=== PATIENT | female | born 1995 | race Caucasian/White ===

== ENCOUNTER 2024-04-20 06:53 | Day surgery (SDC) | payer OTHER ==
[2024-04-20] MEDS ORDERED: LACTATED RINGERS 1,000 ML IV SCH (07:07)
[2024-04-20] MEDS ORDERED: LIDOCAINE 1% (10MG/ML) FOR IV START INTRADERMA PRN (07:07)
[2024-04-20 07:19] VITALS: TEMP 97.6
[2024-04-20] MEDS: LACTATED RINGERS 1,000 ML IV ONE (07:30)
[2024-04-20] MEDS ORDERED: PROPOFOL 10 MG/ML 20 ML VIAL IV ONE (07:33)
--- NOTE | 2024-04-20 07:48 | P.GSHP ---
History of Present Illness H&P Date: 04/20/24 CHIEF COMPLAINT: GERD HISTORY OF PRESENT ILLNESS: The patient is a 28-year-old female who presents reports gastroesophageal reflux disease. Upper endoscopy was offered for further evaluation and management. PAST MEDICAL HISTORY: Please see list. PAST SURGICAL HISTORY: Please see list. MEDICATIONS: Please see list. ALLERGIES: Please see list. SOCIAL HISTORY: No illicit drug use FAMILY HISTORY: No reports of Crohn disease or ulcerative colitis. REVIEW OF ORGAN SYSTEMS: CONSTITUTIONAL: No reports of fevers or chills. GI: Denies any blood in stools or constipation. PHYSICAL EXAM: VITAL SIGNS: Stable GENERAL: Well-developed and pleasant in no acute distress. HEENT: No scleral icterus. Extraocular movements grossly intact. Moist buccal mucosa. NECK: Supple without lymphadenopathy. CHEST: Unlabored respirations. Equal bilateral excursions. CARDIOVASCULAR: Regular rate and rhythm. Distal 2+ pulses. ABDOMEN: Soft, nondistended. MUSCULOSKELETAL: No clubbing, cyanosis, or edema. ASSESSMENT: 1. Gastroesophageal reflux disease PLAN: 1. Recommend proceeding with an upper endoscopy Past Medical History Past Medical History: Hyperlipidemia Additional Past Medical History / Comment(s): pt states that sometimes her cholesterol level is elevated, low vit d level, staph infection rt breast-not mrsa History of Any Multi-Drug Resistant Organisms: None Reported Past Surgical History: Tubal Ligation Additional Past Surgical History / Comment(s): rt hand sx Past Anesthesia/Blood Transfusion Reactions: No Reported Reaction Smoking Status: Former smoker - Past Family History Father Family Medical History: Hyperlipidemia, Hypertension Additional Family Medical History / Comment(s): cardiac issue Medications and Allergies Home Medications Medication Instructions Recorded Confirmed Type OXcarbazepine [Oxtellar Xr] 900 mg PO DAILY 03/18/24 04/14/24 History Ergocalciferol [Vitamin D2 (1250 50,000 unit PO WEEKLY 03/23/24 04/14/24 History Mcg = 70517 Iu)] ISOtretinoin [Accutane] 40 mg PO DAILY 04/14/24 04/14/24 History buPROPion XL [Wellbutrin XL] 150 mg PO DAILY 04/14/24 04/14/24 History Allergies Allergy/AdvReac Type Severity Reaction Status Date / Time adhesive tape Allergy Rash/Hives Verified 04/20/24 07:07 Surgical - Exam Vital Signs Temp Pulse Resp BP Pulse Ox 97.6 F 77 16 115/64 95 04/20/24 07:19 04/20/24 07:19 04/20/24 07:19 04/20/24 07:19 04/20/24 07:19
--- NOTE | 2024-04-20 07:54 | P.PCN ---
Date of Procedure: 04/20/24 Description of Procedure: PREOPERATIVE DIAGNOSIS: Gastroesophageal reflux disease. Morbid obesity. POSTOPERATIVE DIAGNOSIS: Gastroesophageal reflux disease. Morbid obesity. Esophageal ulcer Gastritis. Diaphragmatic hiatal hernia OPERATION: Esophagogastroduodenoscopy with biopsies along esophagus, antrum and duodenum SURGEON: Arminda Singleton MD ANESTHESIA: MAC. INDICATIONS: The patient is a 28-year-old female who presents with reflux disease. Benefits and risks of the procedure were described. Informed consent was obtained. DESCRIPTION: The patient was brought into the endoscopy suite and laid in the left lateral decubitus position. An Olympus gastroscope was passed along the posterior orop harynx down to the distal esophagus where the squamocolumnar junction was encountered at 35 cm from the incisors. The stomach was entered and no bile reflux was found. Additional findings are listed below. Biopsies with cold forceps were obtained of the antrum. The first through third portion of the duodenum was examined. Retroflexion of the scope confirmed Hill grade 3 lower esophageal valve. The squamocolumnar junction demonstrated LA grade B erosive esophagitis. The stomach was desufflated. The patient tolerated the procedure well. FINDINGS: Squamocolumnar junction 35 cm from the incisors. Diaphragmatic hiatus at 36 cm. Hiatal hernia, 1 cm Hill grade 3 lower esophageal valve. LA grade B erosive esophagitis. Biopsies obtained of the duodenum. Chronic gastritis with biopsies obtained. RECOMMENDATIONS: Upper endoscopy as needed. Plan - Discharge Summary Discharge Rx Participant: No New Discharge Prescriptions: Continue OXcarbazepine [Oxtellar Xr] 900 mg PO DAILY buPROPion XL [Wellbutrin XL] 150 mg PO DAILY Ergocalciferol [Vitamin D2 (1250 Mcg = 80741 Iu)] 50,000 unit PO WEEKLY ISOtretinoin [Accutane] 40 mg PO DAILY Discharge Medication List OXcarbazepine [Oxtellar Xr] 900 mg PO DAILY 03/18/24 [History] Ergocalciferol [Vitamin D2 (1250 Mcg = 28375 Iu)] 50,000 unit PO WEEKLY 03/23/24 [History] ISOtretinoin [Accutane] 40 mg PO DAILY 04/14/24 [History] buPROPion XL [Wellbutrin XL] 150 mg PO DAILY 04/14/24 [History] [facility]Ref[place] [facility] [place] [place] [place] [facility] Patient Instructions/Handouts: Peptic Ulcer (DC) Discharge Disposition: HOME SELF-CARE
[2024-04-20 08:23] VITALS: BP 122/80; PULSE 81; RESP 16
== END 2024-04-20 08:41 | disposition home or self-care (01) ==
LOC: ORWHC2ENDO 06:53
PROVIDERS: ATTEND Surgery Plastic and Reconstructive Surgery
DX: K21.00 Gastro-esophageal reflux disease with esophagitis, without bleeding (principal); K22.10 Ulcer of esophagus without bleeding; K44.9 Diaphragmatic hernia without obstruction or gangrene; E78.5 Hyperlipidemia, unspecified; K29.50 Unspecified chronic gastritis without bleeding; E66.01 Morbid (severe) obesity due to excess calories; F31.9 Bipolar disorder, unspecified; Z79.899 Other long term (current) drug therapy; Z87.891 Personal history of nicotine dependence; Z98.51 Tubal ligation status; Z88.8 Allergy status to other drugs, medicaments and biological substances; Z68.41 Body mass index [BMI] 40.0-44.9, adult
CPT/HCPCS: 81025; 43239; J2704; 88305

== ENCOUNTER → 2024-07-22 | Outpatient (CLI) | payer OTHER ==
[2024-07-22 16:24] VITALS: BP 113/76; PULSE 77; RESP 16; TEMP 98.1; BMI 39.9
--- NOTE | 2024-07-22 16:32 | P.BASOAP ---
Subjective Progress Note Date: 07/22/24 She reports constipation. She is seeking the gastric bypass. 5% weigth loss of 228 from 240 or 12 pounds. Risks of bypass reviewed. Risk of not achieving weight reviewed. Objective - Vital Signs Vital signs: Vital Signs Temp 98.1 F 07/22/24 16:15 Pulse 77 07/22/24 16:15 Resp 16 07/22/24 16:15 BP 113/76 07/22/24 16:15 Pulse Ox FiO2 Intake & Output 07/21/24 07/22/24 07/22/24 18:59 06:59 18:59 Weight 108.862 kg Assessment/Plan Plan: Date: 07/22/24 Initial Weight: 108.409 kg Initial BMI: 39.7 Current Weight: 108.862 kg Current BMI: 39.9 Type of Surgery: Total Volume in Band: Previous Volume: Volume Removed: Volume Added: Band Size:
== END ==
LOC: BARWHC3 15:08
PROVIDERS: ATTEND Surgery Plastic and Reconstructive Surgery
DX: E66.01 Morbid (severe) obesity due to excess calories (principal); Z91.048 Other nonmedicinal substance allergy status; Z68.39 Body mass index [BMI] 39.0-39.9, adult
CPT/HCPCS: 99211

== ENCOUNTER 2024-08-10 07:24 | Inpatient (IN) | payer OTHER ==
[~2024-08-10 07:24] MED LIST: HYDROmorphone 0.5 MG/0.5 ML SYRINGE IVP PRN
--- NOTE | 2024-08-10 08:01 | P.GSHP ---
History of Present Illness H&P Date: 08/10/24 CHIEF COMPLAINT: Morbid obesity HISTORY OF PRESENT ILLNESS: Britney Ace is a 29-year-old female who comes with lifelong morbid obesity. As result of morbid obesity, she has hyperlipidemia, osteoarthritis of the hips and knees. She has completed medical supervised weight loss. She has completed psychological risk assessment. All surgical options were reviewed. She elected for gastric bypass. At height of 5 feet 6 inches, her ideal body weight is 154 pounds. She comes in 230 pounds. Her body mass index is 37.0. She is 75 pounds overweight. PAST MEDICAL HISTORY: 1. Morbid obesity due to excess calories 2. Body mass index of 37.0 3. Osteoarthritis of the knees. 4. Osteoarthritis of the lower back. 5. Bipolar disorder 6. Gastroesophageal reflux disease 7. Hyperlipidemia PAST SURGICAL HISTORY: 1. Upper endoscopy HOME MEDICATIONS: Reviewed ALLERGIES: Reviewed SOCIAL HISTORY: Past tobacco use. FAMILY HISTORY: No family history of ulcerative colitis disease or Crohn's disease. Family history of morbid obesity. No lupus in the family. No reports of stomach or esophageal cancer. REVIEW OF ORGAN SYSTEMS: CONSTITUTIONAL: At height of 5 feet 4 inches, her ideal body weight is 144 pounds. She comes in 220 pounds. Her body mass index is 37.8 She is 76 pounds overweight. HEENT: Denies any active troubles with vision or hearing. ENDOCRINE: Has diabetes. Has hypothyroidism. CARDIOVASCULAR: Past reports of palpitations or heart attacks or chest pain. RESPIRATORY: Has daytime somnolence. GASTROINTESTINAL: Denies any bright red blood per rectum. Has gastroesophageal reflux disease. MUSCULOSKELETAL: Has lower back pain and joint pain. Has osteoarthritis of the knees. NEURO: No headaches. No seizure disorders. PSYCH: Has depression. No suicidal ideation. RHEUMATOLOGIC: No lupus. No rheumatoid arthritis. HEMATOLOGIC: Denies any abnormal bleeding or bruising. No personal history of DVTs. SKIN: Has rash. No skin cancer. PHYSICAL EXAM: VITAL SIGNS: Height 5 foot 6 inches, weight 230 pounds. BMI 37.0 GENERAL: Well-developed in no acute distress. HEENT: No scleral icterus. Extraocular movements grossly intact. Hears conversational speech. No nasal drainage. NECK: Supple without lymphadenopathy. CHEST: Nonlabored respirations with equal bilateral excursions. CARDIOVASCULAR: Regular rate and regular rhythm. Distal 2+ pulses. ABDOMEN: Obese, soft, nontender, nondistended. MUSCULOSKELETAL: No clubbing, cyanosis. NEURO: No focal or lateralizing signs. Cranial nerves 2 through 12 grossly within normal limits. PSYCH: Appropriate affect. Alert and oriented to person, place and time. SKIN: Good skin turgor. Well perfused. ASSESSMENT: 1. Morbid obesity due to excess calories 2. Body mass index of 37.0 3. Osteoarthritis of the knees. 4. Osteoarthritis of the lower back. 5. Bipolar disorder 6. Gastroesophageal reflux disease 7. Hyperlipidemia PLAN: 1. Bariatric options between a sleeve, band and a Carlitos-en-Y gastric bypass were reviewed in detail. The patient elected for a gastric bypass. Robotic assisted approach described. 2. The [place] [facility] Data was also reviewed with benefits and risks as described. 3. An 8 page second-generation bariatric consent form was reviewed in detail including potential of bleeding, infection, leaks, adequate weight loss, nutritional deficiencies which the patient demonstrated understanding of the risks. 4. A 2 week high-protein low caloric 800 kcal diet described to address hepatomegaly. 5. Preoperative labs including complete metabolic panel and CBC with type and screen recommended. 6. DVT prophylaxis per [place] [facility]. 7. Antibiotic prophylaxis. 8. Inpatient hospitalization anticipated for more than 2 nights. 9. All questions and concerns were addressed with the patient. 10. Overall, patient has expressed understanding of bariatric care including postoperative diet and commitment of lifestyle. Patient should benefit from surgical intervention for correction of her morbid obesity. 11. She reports constipation. She is seeking the gastric bypass. 5% weigth loss of 228 from 240 or 12 pounds. Risks of bypass reviewed. Risk of not achieving weight reviewed. Past Medical History Past Medical History: GERD/Reflux, Hyperlipidemia Additional Past Medical History / Comment(s): pt states that sometimes her cholesterol level is elevated, hx. low vit d level History of Any Multi-Drug Resistant Organisms: None Reported Past Surgical History: Orthopedic Surgery, Tubal Ligation Additional Past Surgical History / Comment(s): rt hand sx, recent EGD Past Anesthesia/Blood Transfusion Reactions: No Reported Reaction Smoking Status: Former smoker - Past Family History Father Family Medical History: Hyperlipidemia, Hypertension Additional Family Medical History / Comment(s): cardiac issue Medications and Allergies Home Medications Medication Instructions Recorded Confirmed Type OXcarbazepine [Oxtellar Xr] 1,200 mg PO DAILY 03/18/24 08/05/24 History Ergocalciferol [Vitamin D2 (1250 5,000 unit PO DAILY 03/23/24 08/05/24 History Mcg = 22182 Iu)] ISOtretinoin [Accutane] 40 mg PO BID 04/14/24 08/05/24 History Omeprazole [PriLOSEC] 40 mg PO DAILY #14 cap 04/20/24 08/05/24 Rx Atorvastatin [Lipitor] 20 mg PO DAILY 07/22/24 08/05/24 History [place]-3/Dha/Epa/Fish Oil 1 cap PO DAILY 07/22/24 08/05/24 History [Omegapure-820 Softgel] traZODone HCL [Desyrel] 100 mg PO HS 07/22/24 08/05/24 History Allergies Allergy/AdvReac Type Severity Reaction Status Date / Time adhesive tape Allergy Rash/Hives Verified 08/10/24 07:47
[2024-08-10] MEDS: LACTATED RINGERS 1,000 ML IV SCH (08:07)
[2024-08-10] MEDS: IV FLUID CONTINUATION 1,000 ML IV ONE (08:09)
[2024-08-10] MEDS: SODIUM CHLORIDE 0.9% 1,000 ML IV STA (08:10)
--- NOTE | 2024-08-10 08:16 | P.HPADDEND ---
H&P Addendum H&P Addendum Date: 08/10/24 Pain management with abdominal block described to minimize narcotic use. Normal saline bolus 1 L given to counteract dehydration and nausea. Discharge and perioperative management including control of pain, nausea, voiding spontaneously prior to discharge reviewed. All questions addressed. Close outp atient follow-up with the bariatric center in 48 hours after discharge also reviewed as well.
[2024-08-10] MEDS: MIDAZOLAM 2 MG/2 ML VIAL IV ONE (08:22)
[2024-08-10] MEDS: PANTOPRAZOLE 40 MG/10 ML VIAL IVP STA (08:23)
[2024-08-10] MEDS: DEXAMETHASONE SOD PHOSPHATE 4 MG/ML 1 ML VIAL IV ONE (08:23)
[2024-08-10] MEDS: ONDANSETRON 4 MG/2 ML VIAL IVP ONE (08:23)
[2024-08-10] MEDS: SCOPOLAMINE 1 MG/72 HR PATCH TRANSDERM STA (08:24)
[2024-08-10] MEDS: HEPARIN SODIUM,PORCINE 5,000 UNIT/ML 1 ML VIAL SQ PRN (08:36)
[2024-08-10] MEDS: CHLORHEXIDINE GLUCONATE 15 ML CUP MUCOUS MEM STA (08:36)
--- NOTE | 2024-08-10 09:09 | P.ANPRN ---
Procedure Note - Anesthesia - Nerve Block Performed Bilateral Erector Spinae Single Time Out Performed: Yes Date of Procedure: 08/10/24 Procedure Start Time: Procedure Stop Time: Location of Patient: PreOp Indication: Acute Post-Operative Pain, Analgesia, Requested by Surgeon Sedation Type: Sedate with meaningful contact maintained Preparation: Sterile Prep Position: Prone Needle Types: Pajunk Needle Gauge: 21 Ultrasound used to visualize needle placement: Yes Ultrasound used to observe medication spread: Yes Injectate: 0.5% Ropivacaine (see comment for volume) (Ropiv 20ml+Decadron 4mg---Each side. T6 level needle.)
[2024-08-10] MEDS ORDERED: PROPOFOL 10 MG/ML 20 ML VIAL IV ONE (09:34)
[2024-08-10] MEDS ORDERED: DEXAMETHASONE SOD PHOSPHATE 4 MG/ML 1 ML VIAL ONE (09:34)
[2024-08-10] MEDS ORDERED: ROCURONIUM 10 MG/ML (5 ML VIAL) IV ONE (09:34)
[2024-08-10] MEDS ORDERED: NEOSTIGMINE 1 MG/ML 10 ML VIAL ONE (09:34)
[2024-08-10] MEDS ORDERED: SUCCINYLCHOLINE CHLORIDE 200 MG/10 ML VIAL IV ONE (09:34)
[2024-08-10] MEDS ORDERED: HYDROmorphone (PF) 1 MG/ML ONE (09:34)
[2024-08-10] MEDS ORDERED: fentaNYL (PF) 50 MCG/ML 2 ML AMP ONE (09:34)
[2024-08-10] MEDS ORDERED: LIDOCAINE 1% INJ 10MG/ML (20 ML MDV) ONE (09:34)
[2024-08-10] MEDS ORDERED: KETAMINE HCL IN 0.9 % NACL 50 MG/5 ML SYRINGE ONE (09:34)
[2024-08-10] MEDS ORDERED: MIDAZOLAM 2 MG/2 ML VIAL ONE (09:34)
[2024-08-10] MEDS ORDERED: PHENYLEPHRINE 10 MG/ML VIAL ONE (09:34)
[2024-08-10] MEDS ORDERED: ROPIVACAINE 5 MG/ML 30 ML VIAL ONE (09:34)
[2024-08-10] MEDS ORDERED: GLYCOPYRROLATE 0.2 MG/ML 2 ML VIAL ONE (09:34)
[2024-08-10] MEDS: LACTATED RINGERS 1,000 ML IV ONE (09:43)
[2024-08-10] MEDS: LIDOCAINE 1%-EPI 1:100,000 20 ML VIAL SQ ONE (10:05)
[2024-08-10] MEDS ORDERED: NALOXONE 0.4 MG/ML 1 ML VIAL IV PRN (13:45)
[2024-08-10] MEDS ORDERED: HYDROmorphone 2 MG/ML 1 ML SYRINGE IVP PRN (13:46)
[2024-08-10] MEDS ORDERED: HYOSCYAMINE ORAL DROPS 1.875 MG/15 ML BOTTLE PO PRN (13:46)
[2024-08-10] MEDS ORDERED: diphenhydrAMINE 50 MG/ML 1 ML VIAL IVP PRN (13:46)
[2024-08-10] MEDS: ALBUTEROL NEBULIZED 2.5 MG/3 ML INHALATION SCH (15:18)
[2024-08-10] MEDS: SODIUM CHLORIDE 0.9% 2,000 ML IV ONE (15:21)
[2024-08-10] MEDS: ONDANSETRON 4 MG/2 ML VIAL IVP SCH (15:22)
[2024-08-10] MEDS: fentaNYL PCA 500 MCG/50 ML BAG IV SCH (16:00)
[2024-08-10] MEDS: 0.9% NACL WITH KCL 20 MEQ/L 1,000 ML IV SCH (16:08)
[2024-08-10] MEDS: ACETAMINOPHEN IV (For NPO) 1,000 MG in EMPTY BAG 1 BAG IVPB SCH (17:22)
[2024-08-10] MEDS: SIMETHICONE 40 MG/0.6 ML DROPS 2,000 MG/30 ML BOTTLE PO SCH (18:26)
[2024-08-10] MEDS: DEXAMETHASONE SOD PHOSPHATE 4 MG/ML 1 ML VIAL IVP SCH (18:26)
--- NOTE | 2024-08-10 19:06 | P.OP ---
Date of Procedure: 08/10/24 Description of Procedure: SURGEON: MACK BRUNSON MD VACUUM FRAME OPERATOR: NADYA PREOPERATIVE DIAGNOSES: 1. Morbid obesity due to excess calories 2. Body mass index of 37.0 3. Osteoarthritis of the knees. 4. Osteoarthritis of the lower back. 5. Bipolar disorder 6. Gastroesophageal reflux disease 7. Hyperlipidemia POSTOPERATIVE DIAGNOSES: 1. Morbid obesity due to excess calories 2. Body mass index of 37.0 3. Osteoarthritis of the knees. 4. Osteoarthritis of the lower back. 5. Bipolar disorder 6. Gastroesophageal reflux disease 7. Hyperlipidemia OPERATION: 1. Robotic assisted da Hermelinda Xi laparoscopic Ash-en-Y gastric bypass, 100 cm antecolic antegastric Ash limb, with 25 mm EEA. 2. Intraoperative esophagogastrojejunoscopy. ANESTHESIA: GETA and local ESTIMATED BLOOD LOSS: 50 mL SPECIMENS REMOVED: None. COMPLICATIONS: NONE. Operative Findings: 1. Biliopancreatic limb 60 cm 2. Bypass performed using 100 cm ash limb secondary to avoid increased tension at 150 cm. 3. Jejunojejunostomy and Jenkins's defects closed using 2-0 V-LOC, green 4. Leak test negative with gastrojejunal anastomosis patent and hemostatic. 5. Reinforcement sutures were placed along the gastrojejunal anastomosis at along the entire anterior anastomosis, 270 degrees. INDICATIONS: Britney Ace is a 29-year-old female who comes with lifelong morbid obesity. As result of morbid obesity, she has hyperlipidemia, osteoarthritis of the hips and knees. She has completed medical supervised weight loss. She has completed psychological risk assessment. All surgical options were reviewed. She elected for gastric bypass. At height of 5 feet 6 inches, her ideal body weight is 154 pounds. She comes in 230 pounds. Her body mass index is 37.0. She is 75 pounds overweight. A second-generation bariatric consent form was described in detail including the possibility of protein malnutrition, leaks, gastrojejunal stricture, venous thrombosis, need for further surgery for which she demonstrated understanding. Benefits and risks of the procedure were described at length. Informed consent was obtained. DESCRIPTION: The patient was brought into the operating room theater. She was placed supine. She had received heparin subcutaneously for DVT prophylaxis. Additionally Peridex oral solution as an oral decontaminant was placed per anesthesia. After general induction, the abdomen was prepped and draped in standard sterile fashion. Ioban draping was placed along the abdomen. Swartz catheter was avoided. A robotic da Hermelinda Xi system was prepped and primed. Incisions were proposed at 15 cm from the xiphoid. Proposed port sites were marked with indelible marker along the anterior axillary line bilaterally, mid clavicular line bilaterally with each port marked 10 cm from each other. The robotic stapler port was marked for the right midclavicular line including along the left midclavicular line. A 5 mm 0 degrees laparoscopic trocar entry was performed along the left upper quadrant. The abdomen was insufflated to 15 mmHg pressure, which she tolerated well. Diagnostic laparoscopy demonstrated no injury to bowel, viscera, or mesentery. The liver was consistent with her 2-week protein diet without hepatomegaly. An 8 mm camera port was placed left lateral to the umbilicus at the epigastrium, 15 cm distal to the xiphoid. Next, 12-mm robot stapler port was placed along the right mid abdomen. An 12 mm port was exchanged along the left upper quadrant. An 8 mm port was placed on the left lateral abdominal wall under direct visualization Please note that the ports were placed 18 to 20 cm away from the target anatomy of the stomach. Care was taken to check that each robotic arm was safely away from collision with the bed or the patient. At the epigastrium, a medium sized Osmany liver retractor was placed under direct visualization with the [employer] Senior Manager placed under the right shoulder of the patient. The patient was repositioned in reverse Trendelenburg position at 25-degrees after lowering the bed. The robot was docked over the patient. Using grasper for arm 3, a grasper for arm 1, including vessel sealer for arm 4, the robotic system was docked and primed as described. Instruments were interchanged by the geriatric nursing assistant including endoscissors, the needle trailer driver, and stapler. I had sat at the console. Next, the transverse mesocolon was reflected into the upper abdomen for the jejunojejunostomy portion of the case. The ligament of Treitz was identified and measured 60 cm antegrade and marked using 3-0 Silk. The jejunum was divided at the 60 cm point using 60-mm white loads above the suture measurement. The biliopancreatic limb was held in place. The Ash limb was measured 100 cm in an antegrade fashion to avoid tension along the proposed gastrojejunal anastomosis. At 100 cm along the anti-mesenteric border of the Ash limb, a jejunojejunostomy was proposed whereby enterotomies were created along the biliopancreatic limb including the Ash limb using a Bovie cautery. A stay suture of 3-0 Slik was placed to align and create the anastomosis. The enterotomies along the anti- mesenteric borders were created followed by unidirectional fire from the patient's right side using 60 mm blue loads [employer] technology robotic stapler. The jejunojejunostomy was cauterized for hemostasis. The enterotomy was closed after horizontal mattress stitch of 3-0 silk used to elevate the enterotomy followed by closure with the robotic stapler blue load. The jejunal limb was temporarily tacked along the left upper quadrant. Attention was now brought to the creation of the gastrojejunostomy. Along the lesser curvature of the stomach, dissection was made along the retrogastric space to allow first firing of the robotic staple. The posterior cardia of the stomach was densely adherent to the spleen with careful dissection performed. Bleeding had occurred and controlled using gauze. Multiple el of green loads and blue loads of 60 mm staplers were used to divide the stomach to create the gastric pouch. The patient was then prepared for placement of a Orvil. A 25-mm Orvil was selected for placement by the nurse rug receiving clerk. The Orvil tubing was placed anterior to the staple line of the gastric pouch and brought out through the left inferior lateral port. The Orvil was dislodged within the posterior oropharynx. I went to the head of the bed to manipulate the Orvil using an upper endoscope. The Orvil was manipulated and placed anterior to the staple line with the assistance of the FNA. I re-scrubbed into the case. The robotic arms were temporarily undocked. The Orvil was then carefully and successfully navigated with the help of the nurse rug receiving clerk into the gastric pouch. The sutures were identified and divided. The tubing was from the 25 mm anvil. As the Orvil had been placed, the jejunal limb was brought proximally into the upper abdomen. No torsion was found upon the Ash limb. No tension was identified as the limb was brought along the upper abdomen. The jejunal limb was previously opened using hook cautery. The 25-mm EEA stapler was brought through the left anterior lateral port site from the left side. The EEA stapler was brought through the open jejunal limb and its needle was deployed at the antimesenteric border where the anvil were mated for approximately 1 minute upon firing. The stapler was removed after irrigating the shaft of the instrument with warm normal saline. Donuts were found to be intact and on both sides. The [employer] Xi robot arms were then re-docked. I sat at the console. The open jejunal limb defect was closed using 60 mm blue loads after releasing any tension from the blind jejunal limb. No redundancy was present for jejunal limb. The transverse mesocolon was divided for the ash limb. Reinforcement sutures were placed along the gastrojejunal anastomosis and placed along circumferentially along the anterior anastomosis 270 degrees using 3-0 Vicryl. The Jenkins and jejunojejunostomy mesenteric defect was closed using 2- 0 V LOC, green. I then went to the head of the bed to perform the esophagogastrojejunoscopy and a leak test. An Olympus gastroscope was passed alongthe posterior oropharynx which was unremarkable for any injury to the vocal cords. The scope was passed down to the proximal portion of the pouch, whereby no active bleeding was encountered. Excellent visualization of the gastrojejunostomy anastomosis, including the Ash limb was encountered with endoscopic image obtained. The anastomosis was found to be patent without active bleeding. Residual blood was suctioned from the gastric pouch. The gastrointestinal tract was desufflated. No evidence of intraoperative leak was encountered as the gastric pouch and anastomosis were submerged under normal saline solution. The robot was then undocked. I then went back to the bedside of the patient, whereby with coordinated effort of the geriatric nursing assistant, irrigation was aspirated from the upper abdominal cavity. Tisseel was placed circumferentially over the anastomosis of the gastrojejunostomy. The fascial defect of the EEA stapler was closed using Flavio Mir and 0 Vicryl. All instruments and pneumoperitoneum were evacuated from the abdominal cavity. The port correlating with the EEA stapler device was cleansed with normal saline solution and hydrogen peroxide. The rest of incisions were reapproximated using 4-0 Monocryl in an interrupted subcuticular fashion. Local anesthetic was infiltrated along the skin for postop analgesia. Liquid glue was applied to the skin. OptiFoam dressing was placed along the EEA stapler site. At the end of the procedure, needle, sponge and instrument count had been verified correct by the surgical services assistant. The patient had tolerated the procedure well and was extubated and taken to the postanesthesia unit in stable condition.
[2024-08-10] MEDS: PANTOPRAZOLE 40 MG/10 ML VIAL IVP SCH (22:33)
[2024-08-11 08:40] LABS: Basophils # (A) 0.01 X 10*3/uL (0.00-0.10); Basophils % (A) 0.1 %; Eosinophils # (A) 0 X 10*3/uL (0.04-0.35); Eosinophils % (A) 0 %; HCT 36.9 % (37.2-46.3); HGB 11.8 g/dL (12.0-15.0); Lymphocytes # (A) 0.75 X 10*3/uL (0.90-5.00); Lymphocytes % (A) 7.2 %; MCH 26.2 pg (27.0-32.0); Mean Platelet Volume 10.6 FL (9.5-12.2); Monocytes # (A) 0.39 X 10*3/uL (0.20-1.00); Monocytes % (A) 3.8 %; NRBC Per 100 WBC 0 X 10*3/uL (0.00-0.01); Neutrophils # (A) 9.21 X 10*3/uL (1.80-7.70); Neutrophils % (A) 88.5 %; Platelet Count 232 X 10*3/uL (140-440); RDW 14.9 % (11.5-14.5)
[2024-08-11 09:14] LABS: Blood Urea Nitrogen 3.5 mg/dL (9.0-27.0); Carbon Dioxide 18.6 mmol/L (21.6-31.8); Chloride 105 mmol/L (96-109); Magnesium 1.9 mg/dL (1.5-2.4); Sodium 138 mmol/L (135-145)
[2024-08-11 09:15] LABS: Calcium 9.6 mg/dL (8.7-10.3); Phosphorus 2.7 mg/dL (2.4-5.1)
[2024-08-11] MEDS: 0.9% NACL WITH KCL 20 MEQ/L 1,000 ML IV SCH (10:07)
[2024-08-11 10:59] VITALS: BMI 37.0
--- NOTE | 2024-08-11 12:12 | P.DS ---
Providers Date of admission: 08/10/24 07:24 Expected date of discharge: 08/11/24 Attending physician: Arminda Singleton Consults: 08/10/24 07:48 Consult Physician Routine Consulting Provider: [facility] Consult Reason/Comments: TIVA for gastric bypass Do you want consulting provider notified?: Yes Primary care physician: KENY Wylie Hospital Course: Discharge diagnosis 1. Morbid obesity due to excess calories 2. Body mass index of 37.0 3. Osteoarthritis of the knees. 4. Osteoarthritis of the lower back. 5. Bipolar disorder 6. Gastroesophageal reflux disease 7. Hyperlipidemia Hospital course Britney Ace is a 29-year-old female who comes with lifelong morbid obesity. Patient is status post Carlitos-en-Y gastric bypass. Patient tolerated surgery well. Her pain is controlled. She is tolerating diet. She has been up and ambulating. She denies any difficulty urinating. She is afebrile. She is stable for discharge. Physician Floor Framer note has been reviewed by physician. Signing provider agrees with the documented findings, assessment, and plan of care. Patient Condition at Discharge: Stable Plan - Discharge Summary Discharge Rx Participant: Yes New Discharge Prescriptions: New Simethicone 40 mg/0.6 ml Drops [Mylicon Drops] 40 mg PO PCHS PRN #30 ml PRN Reason: Gas bisacodyL [Dulcolax] 5 mg PO DAILY PRN #10 tab PRN Reason: Constipation Omeprazole [PriLOSEC] 40 mg PO DAILY #90 cap Ondansetron Odt [Zofran Odt] 4 mg PO Q8HR PRN #9 tab PRN Reason: Nausea Acetaminophen Tab [Tylenol] 1,000 mg PO Q6HR PRN #30 tablet PRN Reason: Pain Continue OXcarbazepine [Oxtellar Xr] 1,200 mg PO DAILY traZODone HCL [Desyrel] 100 mg PO HS Discontinued Omeprazole [PriLOSEC] 40 mg PO DAILY #14 cap [place]-3/Dha/Epa/Fish Oil [Omegapure-820 Softgel] 1 cap PO DAILY Atorvastatin [Lipitor] 20 mg PO DAILY Ergocalciferol [Vitamin D2 (1250 Mcg = 26265 Iu)] 5,000 unit PO DAILY ISOtretinoin [Accutane] 40 mg PO BID Discharge Medication List OXcarbazepine [Oxtellar Xr] 1,200 mg PO DAILY 03/18/24 [History] traZODone HCL [Desyrel] 100 mg PO HS 07/22/24 [History] Acetaminophen Tab [Tylenol] 1,000 mg PO Q6HR PRN #30 tablet 08/11/24 [Rx] Omeprazole [PriLOSEC] 40 mg PO DAILY #90 cap 08/11/24 [Rx] Ondansetron Odt [Zofran Odt] 4 mg PO Q8HR PRN #9 tab 08/11/24 [Rx] Simethicone 40 mg/0.6 ml Drops [Mylicon Drops] 40 mg PO PCHS PRN #30 ml 08/11/24 [Rx] bisacodyL [Dulcolax] 5 mg PO DAILY PRN #10 tab 08/11/24 [Rx] Follow up [facility]ointment(s[facility] [place] [facility] - 08/12/24 Patient Instructions/Handouts: *Surgery [facility] - Scopalamine Patch Instructions Activity/Diet/Wound Care/Special Instructions: Liquid diet only for 2 weeks No lifting over 4 pounds in 4 weeks May Shower. No soaking in bath tubs for 2 weeks Please notify your surgeon if you develop nausea and vomiting including new onset of abdominal pain. Continue to use incentive spirometry to prevent pneumonias. Please continue to ambulate at home to prevent blood clots in legs. Follow-up at the bariatric center. May shower. Dressings to be discontinued by surgeon in the office. Drink 64 oz of fluid daily. Start protein shakes on . Notify bariatric center for temp over 101.0, increased pain, drainage from incisions. No straws or carbonated beverages. Liquid diet only. Sugar content should be less than 6 g to avoid dumping syndrome. Take MOM for constipation. CRUSH, OPEN, OR CUT TABLETS LARGER THAN A SIZE OF A TIC TAC Do Not take vitamins or cholesterol medication due to increased bleeding risk Discharge Disposition: HOME SELF-CARE
[2024-08-11 15:29] VITALS: BP 104/62; PULSE 59; RESP 18; TEMP 98.7
[2024-08-12] MEDS ORDERED: bisacodyL 5 MG TABLET.DR PO PRN (08:00)
== END 2024-08-11 16:10 | disposition home or self-care (01) | DRG 403 ==
LOC: 2ORMAIN 07:24 → 4SSUR 14:41
PROVIDERS: ADMIT Surgery Plastic and Reconstructive Surgery; ATTEND Surgery Plastic and Reconstructive Surgery
PROC: 8E0W4CZ Robotic Assisted Procedure of Trunk Region, Percutaneous Endoscopic Approach (ICD-10-PCS; 2024-08-10)
PROC: 0D164ZA Bypass Stomach to Jejunum, Percutaneous Endoscopic Approach (ICD-10-PCS; principal; 2024-08-10 08:30)
DX: E66.01 Morbid (severe) obesity due to excess calories (principal); F31.9 Bipolar disorder, unspecified; E11.9 Type 2 diabetes mellitus without complications; E03.9 Hypothyroidism, unspecified; Z68.37 Body mass index [BMI] 37.0-37.9, adult; E78.5 Hyperlipidemia, unspecified; M17.0 Bilateral primary osteoarthritis of knee; K21.9 Gastro-esophageal reflux disease without esophagitis; E86.0 Dehydration; K59.00 Constipation, unspecified; M16.0 Bilateral primary osteoarthritis of hip; Z87.891 Personal history of nicotine dependence; Z79.899 Other long term (current) drug therapy
CPT/HCPCS: 64999; 80051; 81025; 82310; 82565; 83735; 84100; 84520; 85025; 86850; 86900; 86901; 94640; 94760

== ENCOUNTER → 2024-08-12 | Outpatient (CLI) | payer OTHER ==
--- NOTE | 2024-08-12 11:38 | FL ---
EXAMINATION TYPE: FL barium swallow DATE OF EXAM: 08/12/2024 COMPARISON: None HISTORY: Recent Carlitos-en-Y TECHNIQUE: A single contrast UGI study is performed. FINDINGS: Contrast passes from the distal esophagus through the gastroesophageal junction with no sig nificant hesitancy. No extravasation of contrast is evident. No free air is noted during this examination. Contrast passes freely into the proximal jejunum. There is has tendency of contrast emptying the jeju num. Some prominent small bowel are present. Some contrast does spill into the midabdomen during the exam. Some reflux into the distal esophagus in the horizontal drinking position was noted. Fluoroscopy time: 52 seconds. DAP: 1946.80. 30 mL Omnipaque utilized. 65 images. IMPRESSION: 1. Normal post Carlitos-en-Y without obstruction or hesitancy. No extravasation. 2. Some ileus may be present. 3. <ild gastroesophageal reflux into the distal esophagus. [facility], , 08/12/2024 11:35 AM
[2024-08-12 11:40] VITALS: BP 110/62; PULSE 80; TEMP 98.1; BMI 37.5
--- NOTE | 2024-08-12 12:22 | P.PN ---
Progress Note - Text Progress Note Date: 08/12/24 Patient had nurse visit only
== END ==
LOC: BARWHC3 09:57
PROVIDERS: ATTEND Surgery Plastic and Reconstructive Surgery
DX: E66.01 Morbid (severe) obesity due to excess calories (principal); R13.10 Dysphagia, unspecified; K21.9 Gastro-esophageal reflux disease without esophagitis; Z98.84 Bariatric surgery status; Z68.37 Body mass index [BMI] 37.0-37.9, adult
CPT/HCPCS: 74220; Q9967; G0463; 99211

== ENCOUNTER → 2024-08-19 | Outpatient (CLI) | payer OTHER ==
[2024-08-19 14:02] VITALS: BP 108/72; PULSE 90; RESP 16; TEMP 98.1; BMI 35.6
--- NOTE | 2024-08-19 14:27 | P.BASOAP ---
Subjective Progress Note Date: 08/19/24 DOing well and feel bloated. Use gas x. Using premier protein may cause. Using water protein not tried. Rice protein. She is having bowel movement. She is drinking is 6 to 7 bottles. She is drinking 100 oz daily. She has dry mouth from scopolamine patch. Hydrogen peroxide for wounds and magnesium for nausea, sleep and everything else. NO heartburn. Objective - Vital Signs Vital signs: Vital Signs Temp 98.1 F 08/19/24 13:56 Pulse 90 08/19/24 13:56 Resp 16 08/19/24 13:56 BP 108/72 08/19/24 13:56 Pulse Ox FiO2 Intake & Output 08/18/24 08/19/24 08/19/24 18:59 06:59 18:59 Weight 97.069 kg Assessment/Plan Plan: Date: 08/19/24 Initial Weight: 108.409 kg Initial BMI: 39.7 Current Weight: 97.069 kg Current BMI: 35.6 Type of Surgery: Total Volume in Band: Previous Volume: Volume Removed: Volume Added: Band Size:
== END ==
LOC: BARWHC3 13:02
PROVIDERS: ATTEND Surgery Plastic and Reconstructive Surgery
DX: E66.01 Morbid (severe) obesity due to excess calories (principal); Z71.3 Dietary counseling and surveillance; Z68.35 Body mass index [BMI] 35.0-35.9, adult; Z91.09 Other allergy status, other than to drugs and biological substances
CPT/HCPCS: 97802; G0463; 99211

== ENCOUNTER → 2024-08-27 | Outpatient (CLI) | payer OTHER ==
[2024-08-27 12:28] VITALS: BP 100/71; PULSE 94; RESP 16; TEMP 98.2; BMI 34.7
--- NOTE | 2024-08-27 13:15 | FL ---
EXAMINATION TYPE: FL barium swallow DATE OF EXAM: 08/27/2024 LIMITED UGI-ESOPHAGRAM: CLINICAL HISTORY: Abdominal pain. Carlitos-en-Y Gastric bypass TECHNIQUE: Limited esophagram is performed utilizing 20 oz of Omnipaque 350. A total of 38 seconds o f fluoroscopic time was utilized during procedure. FINDINGS: The patient swallowed contrast without difficulty or delay. Esophageal peristalsis and mo tility are within normal limits. Postoperative changes of Carlitos-en-Y gastric bypass without evidence f or leak or obstruction. Proximal jejunal component demonstrates wall thickening likely related to pos t operative edema. No evidence for obstruction. IMPRESSION: Proximal jejunal component demonstrates wall thickening likely related to post operative edema. [facility], , 08/27/2024 1:13 PM
== END ==
LOC: BARWHC3 11:19
PROVIDERS: ATTEND Surgery Plastic and Reconstructive Surgery
DX: K63.89 Other specified diseases of intestine (principal); Z91.09 Other allergy status, other than to drugs and biological substances
CPT/HCPCS: 74220; Q9967; G0463; 99211

== ENCOUNTER 2024-09-17 13:17 | Observation (INO) | payer OTHER ==
[2024-09-17] MEDS ORDERED: ONDANSETRON 4 MG/2 ML VIAL IVP PRN (13:46)
[2024-09-17] MEDS ORDERED: NALOXONE 0.4 MG/ML 1 ML VIAL IV PRN (13:46)
--- NOTE | 2024-09-17 13:46 | ED ---
General Adult HPI - General Chief complaint: Weakness Stated complaint: Dehydration Time Seen by Provider: 09/17/24 13:45 Source: patient, RN notes reviewed Mode of arrival: ambulatory Limitations: no limitations - History of Present Illness Initial comments: 29-year-old female presents emergency department chief complaint of dehydration, difficulty swallowing, nausea vomiting. Patient was sent in by Dr. Singleton. Patient states that she had gastric bypass 5 weeks ago. Patient states that she has been having some on and off issues last couple weeks she has not vomited since 3:00 this morning. Patient states she feels very dehydrated. - Related Data Home Medications Medication Instructions Recorded Confirmed OXcarbazepine [Oxtellar Xr] 1,200 mg PO DAILY 03/18/24 08/27/24 traZODone HCL [Desyrel] 100 mg PO HS PRN 07/22/24 08/27/24 ISOtretinoin [Accutane] 40 mg PO BID 08/19/24 08/27/24 Simethicone Chew [Mylicon Chew] 1 tab PO Q4H PRN 08/19/24 08/27/24 Previous Rx's Medication Instructions Recorded Acetaminophen Tab [Tylenol] 1,000 mg PO Q6HR PRN #30 tablet 08/11/24 Omeprazole [PriLOSEC] 40 mg PO DAILY #90 cap 08/11/24 Ondansetron Odt [Zofran Odt] 4 mg PO Q8HR PRN #9 tab 08/11/24 Simethicone 40 mg/0.6 ml Drops 40 mg PO PCHS PRN #30 ml 08/11/24 [Mylicon Drops] bisacodyL [Dulcolax] 5 mg PO DAILY PRN #10 tab 08/11/24 Allergies Allergy/AdvReac Type Severity Reaction Status Date / Time adhesive tape Allergy Rash/Hives Verified 08/19/24 13:52 Review of Systems ROS Statement: Those systems with pertinent positive or pertinent negative responses have been documented in the HPI. ROS Other: All systems not noted in ROS Statement are negative. 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 Gastric bypass 08-10-24 Past Anesthesia/Blood Transfusion Reactions: No Reported Reaction Past Psychological History: Bipolar Smoking Status: Former smoker Past Alcohol Use History: Occasional Past Drug Use History: None Reported - Past Family History Father Family Medical History: Hyperlipidemia, Hypertension Additional Family Medical History / Comment(s): cardiac issue General Exam Limitations: no limitations General appearance: alert, in no apparent distress Head exam: Present: atraumatic, normocephalic, normal inspection Respiratory exam: Present: normal lung sounds bilaterally. Absent: respiratory distress, wheezes, rales, rhonchi, stridor Cardiovascular Exam: Present: regular rate, normal rhythm, normal heart sounds. Absent: systolic murmur, diastolic murmur, rubs, gallop, clicks GI/Abdominal exam: Present: soft, normal bowel sounds. Absent: distended, tenderness, guarding, rebound, rigid Course Vital Signs 09/17/24 13:35 Temperature 97.9 F Pulse Rate 71 Respiratory 16 Rate Blood Pressure 115/80 O2 Sat by Pulse 100 Oximetry Medical Decision Making - Medical Decision Making Was pt. sent in by a medical professional or institution (, PA, ROTARY ENGINE ASSEMBLER, urgent care, hospital, or detention...) When possible be specific @ -Surgeon Dr. Singleton Did you speak to anyone other than the patient for history (EMS, parent, family, police, friend...)? What history was obtained from this source @ -No Did you review nursing and triage notes (agree or disagree)? Why? @ -I reviewed and agree with nursing and triage notes Were old charts reviewed (outside hosp., previous admission, EMS record, old EKG, old radiological studies, urgent care reports/EKG's, detention records)? Report findings @ -No old charts were reviewed Differential Diagnosis (chest pain, altered mental status, abdominal pain women, abdominal pain men, vaginal bleeding, weakness, fever, dyspnea, syncope, headache, dizziness, GI bleed, back pain, seizure, CVA, palpatations, mental health, musculoskeletal)? @ -Differential Abdominal Pain Women: Appendicitis, Cholecystitis, diverticulosis, ischemic bowel, pancreatitis, hepatitis, UTI, gastroenteritis, AAA, incarcerated hernia, bowel obstruction, constipation, inflammatory bowel, hepatitis, peptic ulcer disease, splenic infarction, perforated viscus, vulvitis, ovarian torsion, PID, kidney stone, placenta abruption, this is not meant to be an all-inclusive list EKG interpreted by me (3pts min.). @ -None X-rays interpreted by me (1pt min.). @ -None done CT interpreted by me (1pt min.). @ -None done U/S interpreted by me (1pt. min.). @ -None done What testing was considered but not performed or refused? (CT, X-rays, U/S, labs )? Why? @ -None What meds were considered but not given or refused? Why? @ -None Did you discuss the management of the patient with other professionals (professionals i.e. , PA, ROTARY ENGINE ASSEMBLER, lab, RT, psych nurse, social security benefits interviewer, industrial pipefitter journeyman, teacher, philanthropy officer, case finisher)? Give summary @ -Dr. Singleton for admission Was smoking cessation discussed for >3mins.? @ -No Was critical care preformed (if so, how long)? @ -No Were there social determinants of health that impacted care today? How? (Homelessness, low income, unemployed, alcoholism, drug addiction, transportation, low edu. Level, literacy, decrease access to med. care, correction, rehab)? @ -No Was there de-escalation of care discussed even if they declined (Discuss DNR or withdrawal of care, Hospice)? DNR status @ -No What co-morbidities impacted this encounter? (DM, HTN, Smoking, COPD, CAD, Cancer, CVA, ARF, Chemo, Hep., AIDS, mental health diagnosis, sleep apnea, morbid obesity)? @ -Gastric bypass Was patient admitted / discharged? Hospital course, mention meds given and route, prescriptions, significant lab abnormalities, going to OR and other pertinent info. @ -Admitted patient will be admitted for IV fluid hydration, possible EGD and surgery along with further evaluation. Undiagnosed new problem with uncertain prognosis? @ -No Drug Therapy requiring intensive monitoring for toxicity (Heparin, Nitro, Insulin, Cardizem)? @ -No Were any procedures done? @ -No Diagnosis/symptom? @Dehydration, esophageal obstruction, status post gastric bypass surgery Acute, or Chronic, or Acute on Chronic? @ -Acute Uncomplicated (without systemic symptoms) or Complicated (systemic symptoms)? @ -[Complicated Side effects of treatment? @ -No Exacerbation, Progression, or Severe Exacerbation? @ -No Poses a threat to life or bodily function? How? (Chest pain, [place], [place], pneumonia, PE, COPD, DKA, ARF, appy, cholecystitis, CVA, Diverticulitis, Homicidal, Suicidal, threat to staff... and all critical care pts) @ -No Disposition Clinical Impression: Dehydration, Esophageal obstruction, Nausea & vomiting Disposition: ADMITTED IP TO THIS [facility] Condition: Fair Referrals: Drake Elmore MD [Primary Care Provider] - 1-2 days Time of Disposition: 13:46
--- NOTE | 2024-09-17 14:00 | P.GSHP ---
History of Present Illness H&P Date: 09/17/24 CHIEF COMPLAINT: Intractable nausea and vomiting with dysphagia HISTORY OF PRESENT ILLNESS: The patient is a 29-year-old female status post gastric bypass over 1 month ago. Patient reports difficulty with drinking any liquids including protein shakes. She denies any diffuse abdominal pain. She r eports specifically epigastric pain. She has intentional weight loss over 30 to 40 pounds in 2 months. PAST MEDICAL HISTORY: See list and reviewed PAST SURGICAL HISTORY: See list and reviewed MEDICATIONS: See list and reviewed ALLERGIES: See list and reviewed SOCIAL HISTORY: See list and reviewed FAMILY HISTORY: See list and reviewed REVIEW OF ORGAN SYSTEMS: CONSTITUTIONAL: No fevers or chills. Intentional weight loss due to gastric bypass EYES: Denies any trouble with vision. No glasses. HEENT: No difficulties with hearing. No nosebleeds. No difficulty swallowing. RESPIRATORY: Denies pneumonia. Denies any troubles with breathing or dyspnea on exertion. CARDIOVASCULAR: Denies any chest pain, palpitations, or recent heart attacks. GASTROINTESTINAL: History of gastroesophageal reflux disease. GENITOURINARY: Denies any blood in urine or increased urinary frequency. NEUROLOGICAL: Denies any numbness or tingling along the distal extremities. No seizure disorders or headaches. MUSCULOSKELETAL: Denies any back pain, stiffness or joint arthritis. SKIN: No current skin cancer. History of acne. PSYCHIATRIC: Denies current depression or suicidal thoughts. ENDOCRINE: Denies current thyroid disorders. Denies any blood sugar glucose intolerance. HEME/LYMPHATIC: Denies any lumps and bumps around the neck. No recent deep venous thrombosis. ALLERGY/IMMUNOLOGY: No immunoglobulin therapy. No immune deficiencies. BREAST: Denies current breast lumps, pain or nipple discharge. PHYSICAL EXAM: VITALS: Reviewed CONSTITUTIONAL: Well developed and in no acute distress. EYES: Conjuctivae without sclera icterus. Extraocular movements grossly intact. HEAD, EARS, NOSE, THROAT: Moist buccal mucosa. Head is atraumatic, normocephalic. Hears conversational speech. No nasal drainage. NECK: Supple. No JV distention. No thyroidomegaly. RESPIRATORY: Non-labored respirations and equal bilateral excursions. No gross wheezes. CARDIOVASCULAR: Palpable 2+ radial pulses. ABDOMEN: Epigastric tenderness. No peritonitis. LYMPH: No neck lymphadenopathy. MUSCULOSKELETAL: No clubbing cyanosis or edema SKIN: Warm and well perfused with good skin turgor. NEUROLOGIC: Cranial nerves II through XII grossly intact. No focal or lateralizing signs. PSYCH: Appropriate affect. Alert and oriented to person, place and time. Displays appropriate insight. CLINCAL LABS: Pending RECORDS: previous old records reviewed for gastric bypass August 2024 ASSESSMENT: 1. Intractable nausea and vomiting due to dysphagia, esophageal obstruction 2. History of gastric bypass 3. Dehydration PLAN: 1. IV fluid hydration. 2. Emergent upper endoscopy with dilation described. 3. Admission for esophageal obstruction 4. 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 Gastric bypass 08-10-24 Past Anesthesia/Blood Transfusion Reactions: No Reported Reaction Past Psychological History: Bipolar Smoking Status: Former smoker Past Alcohol Use History: Occasional Past Drug Use History: None Reported - Past Family History Father Family Medical History: Hyperlipidemia, Hypertension Additional Family Medical History / Comment(s): cardiac issue Medications and Allergies Home Medications Medication Instructions Recorded Confirmed Type OXcarbazepine [Oxtellar Xr] 1,200 mg PO DAILY 03/18/24 08/27/24 History traZODone HCL [Desyrel] 100 mg PO HS PRN 07/22/24 08/27/24 History Acetaminophen Tab [Tylenol] 1,000 mg PO Q6HR PRN #30 tablet 08/11/24 08/27/24 Rx Omeprazole [PriLOSEC] 40 mg PO DAILY #90 cap 08/11/24 08/27/24 Rx Ondansetron Odt [Zofran Odt] 4 mg PO Q8HR PRN #9 tab 08/11/24 08/27/24 Rx Simethicone 40 mg/0.6 ml Drops 40 mg PO PCHS PRN #30 ml 08/11/24 08/27/24 Rx [Mylicon Drops] bisacodyL [Dulcolax] 5 mg PO DAILY PRN #10 tab 08/11/24 08/27/24 Rx ISOtretinoin [Accutane] 40 mg PO BID 08/19/24 08/27/24 History Simethicone Chew [Mylicon Chew] 1 tab PO Q4H PRN 08/19/24 08/27/24 History Allergies Allergy/AdvReac Type Severity Reaction Status Date / Time adhesive tape Allergy Rash/Hives Verified 08/19/24 13:52 Surgical - Exam Vital Signs Temp Pulse Resp BP Pulse Ox 97.9 F 71 16 115/80 100 09/17/24 13:35 09/17/24 13:35 09/17/24 13:35 09/17/24 13:35 09/17/24 13:35
[2024-09-17 14:17] LABS: Anisocytosis Slight; Basophils # (A) 0.1 k/uL (0-0.2); Basophils % (A) 1 %; Eosinophils # (A) 0.1 k/uL (0-0.7); Eosinophils % (A) 1 %; HCT 47.4 % (34.0-46.0); HGB 15.2 gm/dL (11.4-16.0); Lymphocytes # (A) 1.8 k/uL (1.0-4.8); Lymphocytes % (A) 38 %; MCHC 32.1 g/dL (31.0-37.0); MCV 83.9 fL (80.0-100.0); Mean Platelet Volume 8.2; Monocytes # (A) 0.2 k/uL (0-1.0); Monocytes % (A) 5 %; Neutrophils # (A) 2.5 k/uL (1.3-7.7); Neutrophils % (A) 53 %; Platelet Count 183 k/uL (150-450); RBC 5.65 m/uL (3.80-5.40); WBC 4.7 k/uL (3.8-10.6)
[2024-09-17 14:30] LABS: ALT 33 U/L (4-34); African American GFR (CKD) >90 (>60 ml/min/1.73 sqM); Anion Gap 19 mmol/L; Blood Urea Nitrogen 2 mg/dL (7-17); Carbon Dioxide 13 mmol/L (22-30); Chloride 107 mmol/L (98-107); Glucose 70 mg/dL (74-99); Non-African American GFR(CKD) >90 (>60 ml/min/1.73 sqM); Sodium 139 mmol/L (137-145)
[2024-09-17] MEDS: SODIUM CHLORIDE 0.9% 500 ML 500 ML IV ONE (14:40)
[2024-09-17] MEDS: SODIUM CHLORIDE 0.9% 1,000 ML IV ONE ×2 (14:40→22:25)
[2024-09-17] MEDS: SODIUM CHLORIDE 0.9% 1,000 ML IV SCH (14:40)
[2024-09-17 14:45] LABS: AST 46 U/L (14-36); Albumin 5.3 g/dL (3.5-5.0); Magnesium 1.8 mg/dL (1.6-2.3); Potassium 4.4 mmol/L (3.5-5.1); Total Protein 8.1 g/dL (6.3-8.2)
[2024-09-17 14:46] LABS: Alkaline Phosphatase 103 U/L (38-126)
[2024-09-17 14:50] LABS: INR 1.2 (<1.2); Partial Thromboplastin Time 25.2 sec (22.0-30.0); Prothrombin Time 12.6 sec (10.0-12.5)
[2024-09-17] MEDS: LACTATED RINGERS 1,000 ML IV ONE (18:10)
[2024-09-17] MEDS ORDERED: LIDOCAINE 1% INJ 10MG/ML (20 ML MDV) ONE (18:19)
[2024-09-17] MEDS ORDERED: PROPOFOL 10 MG/ML 20 ML VIAL IV ONE (18:19)
--- NOTE | 2024-09-17 19:05 | P.PCN ---
Date of Procedure: 09/17/24 Description of Procedure: PREOPERATIVE DIAGNOSIS: Gastroesophageal reflux disease. Intractable nausea and vomiting Esophageal obstruction Dysphagia POSTOPERATIVE DIAGNOSIS: Gastric obstruction due to gastric ulcer Gastrojejunal ulcer with near complete obstruction OPERATION: Esophagogastrojejunoscopy with pyloric balloon dilation, 28 Turkmen SURGEON: Arminda Singleton MD ANESTHESIA: MAC. INDICATIONS: The patient is a 29-year-old female who presents with a history of reflux disease and dysphagia. Benefits and risks of the procedure were described. Informed consent was obtained. DESCRIPTION: The patient was brought into the endoscopy suite and laid in the left lateral decubitus position. A Olympus gastroscope was carefully passed along the posterior oropharynx into the stomach. Gastric pouch was identified with near complete obstruction of the gastrojejunal anastomosis. The gastric pouch was 5 cm in length. No evidence of erosive esophagitis was found. A Flooved 10 mm pyloric balloon was inserted along the scope into the gastric pouch. Careful insufflation from 8 mm to 9-1/2 mm, 28 Turkmen was performed and dilated up to 2 minutes. The scope was advanced into the jejunum. Multiple ulcerations were identified without acute bleeding. No full-thickness injury was found along the mucosa. The stomach was desufflated. The patient tolerated the procedure well. FINDINGS: Gastric pouch 5 cm Balloon dilation 28 Turkmen (9.5 mm) Gastrojejunal ulcerations without bleeding, near complete obstruction LA grade A erosive esophagitis. RECOMMENDATIONS: Carafate 1 g 3 times daily Omeprazole 40 mg twice daily Repeat upper endoscopy 3 to 4 weeks Liquid diet in the interim between dilations
[2024-09-17] MEDS: SUCRALFATE 1 GM TAB PO SCH (20:07)
[2024-09-17] MEDS: PANTOPRAZOLE 40 MG/10 ML VIAL IVP SCH (20:07)
[2024-09-17] MEDS ORDERED: HYDROmorphone 0.5 MG/0.5 ML SYRINGE IVP PRN (22:04)
[2024-09-17] MEDS ORDERED: HYDROmorphone 1 MG/ML 1 ML SYRINGE IVP PRN (22:04)
[2024-09-18] MEDS ORDERED: ONDANSETRON 4 MG/2 ML VIAL IVP PRN (05:00)
[2024-09-18] MEDS ORDERED: MELOXICAM 7.5 MG TAB PO PRN (05:00)
[2024-09-18] MEDS ORDERED: HEPARIN SODIUM,PORCINE 5,000 UNIT/ML 1 ML VIAL SQ PRN (05:00)
[2024-09-18] MEDS ORDERED: ACETAMINOPHEN TAB 500 MG TAB PO PRN (05:00)
[2024-09-18] MEDS: Pre Op ABX Message 1 EACH MISC MISCELLANE ONE (07:24)
[2024-09-18 07:33] VITALS: BP 112/72; PULSE 71; RESP 18; TEMP 97.3
[2024-09-18] MEDS: SCOPOLAMINE 1 MG/72 HR PATCH TRANSDERM SCH (08:54)
[2024-09-18] MEDS: OXCARBAZEPINE 600 MG PO SCH (08:57)
--- NOTE | 2024-09-18 10:50 | P.DS ---
Providers Date of admission: 09/17/24 13:47 Expected date of discharge: 09/18/24 Attending physician: Arminda Singleton Primary care physician: Drake Elmore [facility] Course: Discharge diagnosis Gastric obstruction due to gastric ulcer Gastrojejunal ulcer with near complete obstruction Hospital course This is a 29-year-old female who presented with reflux disease and dysphagia. Patient is status post EGD with pyloric balloon dilation. Patient's EGD had reported gastric obstruction due to gastric ulcer and gastrojejunal ulcer with near complete obstruction. Since the dilation patient is tolerating liquid diet. She denies any vomiting. Denies any abdominal pain. She has been up and ambulating. Patient being discharged with omeprazole and Carafate. She is afebrile. She is stable for discharge. Physician Tax Accountant note has been reviewed by physician. Signing provider agrees with the documented findings, assessment, and plan of care. As above. Patient will have close outpatient follow-up with the bariatric center. Continue omeprazole and Carafate described. Will need additional upper endoscopy with dilation in the future. Patient Condition at Discharge: Stable Plan - Discharge Summary Discharge Rx Participant: Yes New Discharge Prescriptions: New Omeprazole [PriLOSEC] 40 mg PO BID #60 cap Sucralfate [Carafate] 1 gm PO BID #60 tablet Continue OXcarbazepine [Oxtellar Xr] 1,200 mg PO DAILY Scopolamine [Scopolamine 1 MG/72 HR patch] 1 patch TRANSDERM Q72H Discontinued Omeprazole [PriLOSEC] 40 mg PO DAILY #90 cap Discharge Medication List OXcarbazepine [Oxtellar Xr] 1,200 mg PO DAILY 03/18/24 [History] Omeprazole [PriLOSEC] 40 mg PO BID #60 cap 09/17/24 [Rx] Scopolamine [Scopolamine 1 MG/72 HR patch] 1 patch TRANSDERM Q72H 09/17/24 [History] Sucralfate [Carafate] 1 gm PO BID #60 tablet 09/17/24 [Rx] Follow up Appointment(s)/Referral(s): Drake Elmore MD [Primary Care Provider] - 1-2 days Bariatric [place], [place] [NON-STAFF] - 09/23/24 3:30 pm Activity/Diet/Wound Care/Special Instructions: Liquid diet. Avoid textured food or foods with chunks. Discharge Disposition: HOME SELF-CARE
== END 2024-09-18 12:38 | disposition home or self-care (01) ==
LOC: ORWHC2ENDO 13:17 → 4SSUR 13:47 → INTOOBSV 13:47 → 4SSUR 14:46
PROVIDERS: ADMIT Surgery Plastic and Reconstructive Surgery; ATTEND Surgery Plastic and Reconstructive Surgery
DX: K22.2 Esophageal obstruction (principal); E86.0 Dehydration; K21.00 Gastro-esophageal reflux disease with esophagitis, without bleeding; K56.600 Partial intestinal obstruction, unspecified as to cause; K25.9 Gastric ulcer, unspecified as acute or chronic, without hemorrhage or perforation; F31.9 Bipolar disorder, unspecified; E78.5 Hyperlipidemia, unspecified; I10 Essential (primary) hypertension; Z87.891 Personal history of nicotine dependence; Z98.84 Bariatric surgery status; Z79.899 Other long term (current) drug therapy
CPT/HCPCS: 96376; 96374; 99285; 80053; 83735; 85025; 85610; 85730; 84703; 43245; G0378 ×2; J2470 ×2; C1726

== ENCOUNTER → 2024-09-23 | Outpatient (CLI) | payer OTHER ==
[2024-09-23 14:29] LABS: INR 1.2 (<1.2); Partial Thromboplastin Time 25.7 sec (22.0-30.0); Prothrombin Time 12.7 sec (10.0-12.5)
[2024-09-23 18:37] LABS: HCT 42.8 % (37.2-46.3); MCH 26.2 pg (27.0-32.0); MCHC 32.7 g/dL (32.0-37.0); MCV 80.1 FL (80.0-97.0); Mean Platelet Volume 11.5 FL (9.5-12.2); NRBC Per 100 WBC 0 X 10*3/uL (0.00-0.01); Platelet Count 247 X 10*3/uL (140-440); RBC 5.34 X 10*6/uL (4.10-5.20); RDW 18.2 % (11.5-14.5); WBC 5.36 X 10*3/uL (4.50-10.00)
[2024-09-23 20:17] LABS: Chol/HDL Ratio 3.64 Ratio; VLDL Calculation 16.92 mg/dL (5.00-40.00)
[2024-09-23 20:18] LABS: % Iron Saturation 16.72 (12.00-45.00); ALT 22 U/L (8-44); AST 24 U/L (13-35); Albumin 4.6 g/dL (3.8-4.9); Albumin/Globulin Ratio 1.84 Ratio (1.60-3.17); Alkaline Phosphatase 108 U/L (41-126); BUN/Creat Ratio 10.17 Ratio (12.00-20.00); Blood Urea Nitrogen 6.1 mg/dL (9.0-27.0); Carbon Dioxide 18.1 mmol/L (21.6-31.8); Chloride 98 mmol/L (96-109); Ferritin 57.3 ng/mL (10.0-291.0); Globulin 2.5 g/dL (1.6-3.3); Glucose 76 mg/dL (70-110); Iron 48 UG/DL (50-170); LDL Cholesterol,Calculated 112.2 mg/dL (0.0-131.0); Magnesium 1.6 mg/dL (1.5-2.4); Phosphorus 3.5 mg/dL (2.4-5.1); Potassium 3.7 mmol/L (3.5-5.5); Sodium 138 mmol/L (135-145); Total Bilirubin 0.4 mg/dL (0.3-1.2); Total Iron Binding Capacity 287 UG/DL (228-460); Total Protein 7.1 g/dL (6.2-8.2)
[2024-09-23 20:38] LABS: Prealbumin 14.5 mg/dL (18.0-42.0)
[2024-09-24 12:59] LABS: Zinc, Serum 115 ug/dL (60-130)
[2024-09-25 06:41] LABS: Vitamin A 22 ug/dL (38-106)
[2024-09-25 09:43] LABS: Vit B1(Thiamine) 35 ug/L (38-122)
== END | disposition home or self-care (01) ==
LOC: LABWHC1 13:44
PROVIDERS: ATTEND Surgery Plastic and Reconstructive Surgery
DX: E89.1 Postprocedural hypoinsulinemia (principal); E45 Retarded development following protein-calorie malnutrition; D50.8 Other iron deficiency anemias; K91.2 Postsurgical malabsorption, not elsewhere classified; E44.0 Moderate protein-calorie malnutrition; E44.1 Mild protein-calorie malnutrition; E66.01 Morbid (severe) obesity due to excess calories; E55.9 Vitamin D deficiency, unspecified; K74.1 Hepatic sclerosis; N19 Unspecified kidney failure; T56.894A Toxic effect of other metals, undetermined, initial encounter; K50.90 Crohn's disease, unspecified, without complications
CPT/HCPCS: 36415; 80053; 80061; 82306; 82525; 82607; 82728; 82746; 83036; 83540; 83550; 83735; 83970; 84100; 84134; 84255; 84425; 84443; 84590; 84630; 85027; 85610; 85730

== ENCOUNTER → 2024-09-23 | Outpatient (CLI) | payer OTHER ==
--- NOTE | 2024-09-23 11:57 | US ---
EXAMINATION TYPE: US gallbladder DATE OF EXAM: 09/23/2024 COMPARISON: NONE CLINICAL INDICATION: Female, 29 years old with history of R10.11 RIGHT UPPER QUADRANT PAIN; RUQ pain TECHNIQUE: Grayscale and color Doppler imaging of the right upper quadrant was performed. FINDINGS: EXAM MEASUREMENTS: Liver Length: 13.3 cm Gallbladder Wall: 0.3 cm CBD: 0.2 cm Right Kidney: 10.2 x 5.2 x 5.2 cm BOAT PILOT NOTES: Pancreas: wnl Liver: heterogeneous Gallbladder: mobile nonvascular debris/sludge seen inside Evidence for sonographic Anaya's sign: No CBD: wnl Right Kidney: wnl IMPRESSION: 1. Cholelithiasis/biliary sludge. 2. Heterogenous liver echotexture correlate with serum markers for hepatocellular disease. [facility], , 09/23/2024 11:54 AM
== END | disposition home or self-care (01) ==
LOC: RADUSWWP 10:06
PROVIDERS: ATTEND Surgery Plastic and Reconstructive Surgery
DX: K80.20 Calculus of gallbladder without cholecystitis without obstruction (principal); K76.89 Other specified diseases of liver
CPT/HCPCS: 76705

== ENCOUNTER → 2024-09-23 | Outpatient (CLI) | payer OTHER ==
[2024-09-23 13:04] VITALS: BP 126/82; PULSE 98; RESP 16; TEMP 97.9; BMI 32.3
--- NOTE | 2024-09-23 13:31 | P.BASOAP ---
Subjective Progress Note Date: 09/23/24 Reviewed labs. She lost 50 pounds in 2 months. Needs upper scope in Nov 04. Needs Needs gallbladder removal. Drink liquids. Pureed prior with warm beverages. Omeprazole, carafate, MVI, Chewables and liquids. Galllstones and needs cholecystectomy. Get labs. Objective - Vital Signs Vital signs: Vital Signs Temp 97.9 F 09/23/24 13:00 Pulse 98 09/23/24 13:00 Resp 16 09/23/24 13:00 BP 126/82 09/23/24 13:00 Pulse Ox FiO2 Intake & Output 09/22/24 09/23/24 09/23/24 18:59 06:59 18:59 Weight 87.997 kg Assessment/Plan Plan: Date: 09/23/24 Initial Weight: 108.409 kg Initial BMI: 39.7 Current Weight: 87.997 kg Current BMI: 32.3 Type of Surgery: Total Volume in Band: Previous Volume: Volume Removed: Volume Added: Band Size:
== END ==
LOC: BARWHC3 10:39
PROVIDERS: ATTEND Surgery Plastic and Reconstructive Surgery
DX: E66.01 Morbid (severe) obesity due to excess calories (principal); Z71.3 Dietary counseling and surveillance; Z68.32 Body mass index [BMI] 32.0-32.9, adult; Z91.048 Other nonmedicinal substance allergy status
CPT/HCPCS: 97803; G0463; 99211

== ENCOUNTER → 2024-12-02 | Outpatient (CLI) | payer OTHER ==
[2024-12-02 14:02] VITALS: BP 103/69; PULSE 70; RESP 16; TEMP 98.3; BMI 28.1
--- NOTE | 2024-12-02 14:39 | P.BASOAP ---
Subjective Progress Note Date: 12/02/24 She is on trileptal no more ulcers. Needs 1 more stretch. She is losing weight. Have a stretch of the anastomosis pending. She is looking into 145 pounds. Objective - Vital Signs Vital signs: Vital Signs Temp 98.3 F 12/02/24 13:44 Pulse 70 12/02/24 13:44 Resp 16 12/02/24 13:44 BP 103/69 12/02/24 13:44 Pulse Ox FiO2 Intake & Output 12/01/24 12/02/24 12/02/24 18:59 06:59 18:59 Weight 76.657 kg Assessment/Plan Plan: Date: 12/02/24 Initial Weight: 108.409 kg Initial BMI: 39.7 Current Weight: 76.657 kg Current BMI: 28.1 Type of Surgery: Total Volume in Band: Previous Volume: Volume Removed: Volume Added: Band Size:
== END ==
LOC: BARWHC3 13:30
PROVIDERS: ATTEND Surgery Plastic and Reconstructive Surgery
DX: E66.01 Morbid (severe) obesity due to excess calories (principal); Z68.28 Body mass index [BMI] 28.0-28.9, adult; Z91.09 Other allergy status, other than to drugs and biological substances
CPT/HCPCS: 97803; G0463; 99211

== ENCOUNTER → 2024-12-02 | Outpatient (CLI) | payer OTHER ==
[2024-12-02 13:52] LABS: INR 1.1 (<1.2); Partial Thromboplastin Time 24.8 sec (22.0-30.0); Prothrombin Time 12.2 sec (10.0-12.5)
[2024-12-02 19:24] LABS: HCT 44.7 % (37.2-46.3); HGB 14.3 g/dL (12.0-15.0); MCH 27.4 pg (27.0-32.0); MCV 85.6 FL (80.0-97.0); NRBC Per 100 WBC 0 X 10*3/uL (0.00-0.01); Platelet Count 255 X 10*3/uL (140-440); RBC 5.22 X 10*6/uL (4.10-5.20); RDW 16.1 % (11.5-14.5)
[2024-12-02 19:38] LABS: Prealbumin 15.4 mg/dL (18.0-42.0)
[2024-12-02 20:56] LABS: % Iron Saturation 10.04 (12.00-45.00); ALT 37 U/L (8-44); AST 28 U/L (13-35); Albumin 5.4 g/dL (3.8-4.9); Albumin/Globulin Ratio 1.86 Ratio (1.60-3.17); Alkaline Phosphatase 135 U/L (41-126); BUN/Creat Ratio 13.83 Ratio (12.00-20.00); Blood Urea Nitrogen 8.3 mg/dL (9.0-27.0); Calcium 10.6 mg/dL (8.7-10.3); Carbon Dioxide 22.2 mmol/L (21.6-31.8); Chloride 101 mmol/L (96-109); Chol/HDL Ratio 4.06 Ratio; Globulin 2.9 g/dL (1.6-3.3); Glucose 83 mg/dL (70-110); Iron 47 UG/DL (50-170); LDL Cholesterol,Calculated 158.6 mg/dL (0.0-131.0); Potassium 3.8 mmol/L (3.5-5.5); Sodium 140 mmol/L (135-145); Total Bilirubin 0.5 mg/dL (0.3-1.2); Total Iron Binding Capacity 468 UG/DL (228-460); Total Protein 8.3 g/dL (6.2-8.2); VLDL Calculation 17.66 mg/dL (5.00-40.00)
[2024-12-02 23:45] LABS: Magnesium 2.1 mg/dL (1.5-2.4); Phosphorus 3.1 mg/dL (2.4-5.1)
[2024-12-03 11:32] LABS: Zinc, Serum 107 ug/dL (60-130)
[2024-12-04 06:01] LABS: Vitamin A 32 ug/dL (38-106)
[2024-12-04 20:20] LABS: Selenium 105 mcg/L (63-160)
[2024-12-08 11:26] LABS: Vit B1(Thiamine) 46 ug/L (38-122)
== END | disposition home or self-care (01) ==
LOC: LABWHC1 12:31
PROVIDERS: ATTEND Surgery Plastic and Reconstructive Surgery
DX: E89.1 Postprocedural hypoinsulinemia (principal); D50.8 Other iron deficiency anemias; E44.0 Moderate protein-calorie malnutrition; E55.9 Vitamin D deficiency, unspecified; N19 Unspecified kidney failure; E45 Retarded development following protein-calorie malnutrition; T56.894A Toxic effect of other metals, undetermined, initial encounter; K50.90 Crohn's disease, unspecified, without complications; K74.1 Hepatic sclerosis; K91.2 Postsurgical malabsorption, not elsewhere classified
CPT/HCPCS: 36415; 80053; 80061; 82525; 82607; 82728; 82746; 83036; 83540; 83550; 83735; 83970; 84100; 84134; 84255; 84425; 84443; 84590; 84630; 85027; 85610; 85730

== ENCOUNTER 2024-12-14 08:35 | Day surgery (SDC) | payer OTHER ==
[2024-12-10 13:21] VITALS: BMI 27.3
--- NOTE | 2024-12-14 07:39 | P.GSHP ---
History of Present Illness H&P Date: 12/14/24 CHIEF COMPLAINT: Esophageal stricture HISTORY OF PRESENT ILLNESS: The patient is a 29-year-old female who presents reports dysphagia. Upper endoscopy was offered for further evaluation and management. PAST MEDICAL HISTORY: Please see list. PAST SURGICAL HISTORY: Please see list. MEDICATIONS: Please see list. ALLERGIES: Please see list. SOCIAL HISTORY: No illicit drug use FAMILY HISTORY: No reports of Crohn disease or ulcerative colitis. REVIEW OF ORGAN SYSTEMS: CONSTITUTIONAL: No reports of fevers or chills. GI: Denies any blood in stools or constipation. PHYSICAL EXAM: VITAL SIGNS: Stable GENERAL: Well-developed and pleasant in no acute distress. HEENT: No scleral icterus. Extraocular movements grossly intact. Moist buccal mucosa. NECK: Supple without lymphadenopathy. CHEST: Unlabored respirations. Equal bilateral excursions. CARDIOVASCULAR: Regular rate and rhythm. Distal 2+ pulses. ABDOMEN: Soft, nondistended. MUSCULOSKELETAL: No clubbing, cyanosis, or edema. ASSESSMENT: 1. Esophageal stricture PLAN: 1. Recommend proceeding with an upper endoscopy with rigid dilators. Past Medical History Past Medical History: GERD/Reflux, Hyperlipidemia, Thyroid Disorder Additional Past Medical History / Comment(s): pt states that sometimes her cholesterol level is elevated. not taking any meds for cholesterol, low vit d level, difficulty swallowing since 2023 History of Any Multi-Drug Resistant Organisms: None Reported Past Surgical History: Bariatric Surgery, Tubal Ligation Additional Past Surgical History / Comment(s): rt hand sx. Gastric bypass 08-10-24. egd with dialation Past Anesthesia/Blood Transfusion Reactions: No Reported Reaction Past Psychological History: Anxiety, Bipolar, PTSD Smoking Status: Former smoker Past Alcohol Use History: None Reported Additional Past Alcohol Use History / Comment(s): quit smoking march 2024 Past Drug Use History: None Reported - Past Family History Father Family Medical History: Hyperlipidemia, Hypertension Additional Family Medical History / Comment(s): cardiac issues Medications and Allergies Home Medications Medication Instructions Recorded Confirmed Type Omeprazole [PriLOSEC] 40 mg PO BID #60 cap 09/17/24 12/10/24 Rx Ergocalciferol [Vitamin D2 (1250 50,000 unit PO WEEKLY 10/01/24 12/10/24 History Mcg = 57357 Iu)] Vitamin A 10,000 unit PO DAILY 10/01/24 12/10/24 History Calcium Carb/Vitamin D3/Vit K1 1 tab PO DAILY 11/05/24 12/10/24 History [Citracal-D3 500 mg Soft Chew] Iron Ag,Ps/C/Fa6/B12/Zn/SA/Sto 1 each PO DAILY 11/05/24 12/10/24 History [Niferex Tablet] Levothyroxine Sodium [Synthroid] 50 mcg PO DAILY 11/05/24 12/10/24 History Multivitamin [Multivitamins Adult 1 tab PO DAILY 11/05/24 12/10/24 History Gummies] OXcarbazepine 300MG/5ML SUSP 10 ml PO BID 11/05/24 12/10/24 History [Trileptal Liquid] traZODone HCL 150 mg PO HS 11/05/24 12/10/24 History Acetaminophen Tab [Tylenol Tab] 1,000 mg PO Q6HR PRN #30 tablet 11/09/24 12/10/24 Rx Sucralfate [Carafate] 1 gm PO DAILY 12/02/24 12/10/24 History Allergies Allergy/AdvReac Type Severity Reaction Status Date / Time adhesive tape Allergy Rash/Hives/ Verified 12/10/24 13:21 Swelling
[2024-12-14] MEDS ORDERED: LIDOCAINE 1% (10MG/ML) FOR IV START INTRADERMA PRN (08:36)
[2024-12-14] MEDS: LACTATED RINGERS 1,000 ML IV SCH (09:24)
[2024-12-14 09:28] VITALS: RESP 16; TEMP 98.2
[2024-12-14] MEDS: IV FLUID CONTINUATION 1,000 ML IV ONE (09:30)
[2024-12-14] MEDS ORDERED: PROPOFOL 10 MG/ML 20 ML VIAL IV ONE (09:31)
[2024-12-14] MEDS ORDERED: LIDOCAINE 1% INJ 10MG/ML (20 ML MDV) ONE (09:31)
--- NOTE | 2024-12-14 09:56 | P.PCN ---
Date of Procedure: 12/14/24 Description of Procedure: PREOPERATIVE DIAGNOSIS: Dysphagia. POSTOPERATIVE DIAGNOSIS: Dysphagia. 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 SURGEON: Arminda Singleton MD ANESTHESIA: MAC. INDICATIONS: The patient is a 29-year-old female who presents with dysphagia. Benefits and risks of the procedure were described. Informed consent was obtained. DESCRIPTION: The patient was brought into the endoscopy suite and laid in the left lateral decubitus position. After a timeout was confirmed, the procedure was initiated. An Olympus gastroscope was passed along the posterior oropharynx down to the distal esophagus where the squamocolumnar junction was unremarkable. The gastric pouch was entered. A gastrojejunal stricture of 12 mm was found as the adult gastroscope was 9.5 mm in size. A micecloud balloon dilator was placed through the scope. Final insufflation up to 18 mm was performed with a total of 2 minutes. The scope was advanced up to 60 cm from the incisors into the [place] limb. The mucosa of the gastrojejunal anastomosis was intact. However chronic gastrojejunal marginal ulcer with bleeding was encountered. No full- thickness injury was encountered. The GI tract was desufflated. The patient tolerated the procedure well. FINDINGS: Squamocolumnar junction unremarkable at 35 cm. Stricture of approximately 12 mm encountered. Cchronic gastrojejunal ulceration encountered, 2 mm with bleeding Successful balloon dilatation to 18 mm. Gastric pouch 5 cm Sliding diaphragmatic hiatal hernia, 2 cm RECOMMENDATIONS: Omeprazole 40 mg twice daily Carafate 1 g twice daily Upper endoscopy as needed. Plan - Discharge Summary New Discharge Prescriptions: Continue Omeprazole [PriLOSEC] 40 mg PO BID #60 cap Ergocalciferol [Vitamin D2 (1250 Mcg = 06538 Iu)] 50,000 unit PO WEEKLY traZODone HCL 150 mg PO HS OXcarbazepine 300MG/5ML SUSP [Trileptal Liquid] 10 ml PO BID Multivitamin [Multivitamins Adult Gummies] 1 tab PO DAILY Iron Ag,Ps/C/Fa6/B12/Zn/SA/Sto [Niferex Tablet] 1 each PO DAILY Vitamin A 10,000 unit PO DAILY Levothyroxine Sodium [Synthroid] 50 mcg PO DAILY Calcium Carb/Vitamin D3/Vit K1 [Citracal-D3 500 mg Soft Chew] 1 tab PO DAILY Acetaminophen Tab [Tylenol] 1,000 mg PO Q6HR PRN #30 tablet PRN Reason: Pain Sucralfate [Carafate] 1 gm PO DAILY Discharge Medication List Omeprazole [PriLOSEC] 40 mg PO BID #60 cap 09/17/24 [Rx] Ergocalciferol [Vitamin D2 (1250 Mcg = 41084 Iu)] 50,000 unit PO WEEKLY 10/01/24 [History] Vitamin A 10,000 unit PO DAILY 10/01/24 [History] Calcium Carb/Vitamin D3/Vit K1 [Citracal-D3 500 mg Soft Chew] 1 tab PO DAILY 11/05/24 [History] Iron Ag,Ps/C/Fa6/B12/Zn/SA/Sto [Niferex Tablet] 1 each PO DAILY 11/05/24 [History] Levothyroxine Sodium [Synthroid] 50 mcg PO DAILY 11/05/24 [History] Multivitamin [Multivitamins Adult Gummies] 1 tab PO DAILY 11/05/24 [History] OXcarbazepine 300MG/5ML SUSP [Trileptal Liquid] 10 ml PO BID 11/05/24 [History] traZODone HCL 150 mg PO HS 11/05/24 [History] Acetaminophen Tab [Tylenol] 1,000 mg PO Q6HR PRN #30 tablet 11/09/24 [Rx] Sucralfate [Carafate] 1 gm PO DAILY 12/02/24 [History] [facility] [place] [facility] [place] 12/23/24 4:00 pm Patient Instructions/Handouts: *Surgery [facility] - (Anesthesia) Discharge Instructions Outpatient Surgery, Esophageal Dilation (DC) Activity/Diet/Wound Care/Special Instructions: Warm beverages prior to eating for the next 3 days Discharge Disposition: HOME SELF-CARE
[2024-12-14 10:50] VITALS: BP 101/67; PULSE 70
== END 2024-12-14 11:04 | disposition home or self-care (01) ==
LOC: ORWHC2ENDO 08:35
PROVIDERS: ATTEND Surgery Plastic and Reconstructive Surgery
DX: K22.2 Esophageal obstruction (principal); K28.7 Chronic gastrojejunal ulcer without hemorrhage or perforation; K44.9 Diaphragmatic hernia without obstruction or gangrene; Z79.890 Hormone replacement therapy; E78.5 Hyperlipidemia, unspecified; E03.9 Hypothyroidism, unspecified; Z98.84 Bariatric surgery status; Z87.891 Personal history of nicotine dependence
CPT/HCPCS: 81025; 43249; J2003; J2704; C1726